=== PATIENT | female | born 1965 | race Caucasian/White ===

== ENCOUNTER → 2021-12-29 | Outpatient (CLI) | payer BC ==
--- NOTE | 2021-12-30 13:39 | MM ---
Reason for exam: screening (asymptomatic). Baseline mammogram. History: Patient is postmenopausal. Family history of breast cancer in maternal aunt at age 45 and breast cancer in paternal grandmother at age 45. Physical Findings: A clinical breast exam by your physician is recommended on an annual basis and results should be correlated with mammographic findings. MG 3D Screening Mammo W/Cad Bilateral CC and MLO view(s) were taken. There are scattered fibroglandular densities. There is no discrete abnormality. ASSESSMENT: Benign, BI-RAD 2 RECOMMENDATION: Routine screening mammogram of both breasts in 1 year.
== END | disposition home or self-care (01) ==
LOC: RADMAMWWP 10:08
PROVIDERS: ATTEND Obstetrics & Gynecology
DX: Z12.31 Encounter for screening mammogram for malignant neoplasm of breast (principal); Z78.0 Asymptomatic menopausal state; Z80.3 Family history of malignant neoplasm of breast
CPT/HCPCS: 77063; 77067

== ENCOUNTER 2024-01-13 12:43 | Observation (INO) | payer BC ==
--- NOTE | 2024-01-13 13:01 | ED ---
Chest Pain HPI - General Source: patient, RN notes reviewed <Jackelin Michel - Last Filed: 01/13/24 13:12> <Darek Llamas - Last Filed: 01/13/24 15:25> - General Stated Complaint: Chest Pain Time Seen by Provider: 01/13/24 12:55 - History of Present Illness Initial Comments: Quick Note-this is a 58-year-old female comes emergency department chief complaint of chest pain. Patient states she was at work when she began to feel heaviness in her chest that radiates into her back. Patient denies history of high blood pressure, hyperlipidemia, heart attack or stroke, or smoking history. (Jackelin Michel) This is a 58-year-old female with a past medical history significant for hypertension and prediabetes. Patient states she also has a very strong family history of heart disease with a brother and father both had heart attacks. Patient states she was at work at about an hour and a half ago and started having chest pressure went up to her right shoulder and he continues to be there now. Patient states she also woke up this morning with a headache. Patient does take high blood pressure medication and she took it this morning. Patient denies any recent fever chills or cough. Patient denies any abdominal pain patient has any nausea vomiting. Patient has any shortness of breath. Patient denies any diaphoretic episode. Patient Nuys any swelling to the legs or calf tenderness (Darek Llamas) - Related Data Home Medications Medication Instructions Recorded Confirmed lisinopriL [Zestril] 10 mg PO DAILY 01/13/24 01/13/24 Allergies Allergy/AdvReac Type Severity Reaction Status Date / Time Penicillins Allergy Rash/Hives Verified 01/13/24 15:02 Review of Systems ROS Other: All systems not noted in ROS Statement are negative. <Jackelin Michel - Last Filed: 01/13/24 13:12> ROS Other: All systems not noted in ROS Statement are negative. <Darek Llamas - Last Filed: 01/13/24 15:25> ROS Statement: Those systems with pertinent positive or pertinent negative responses have been documented in the HPI. General Exam <Jackelin Michel - Last Filed: 01/13/24 13:12> <Darek Llamas - Last Filed: 01/13/24 15:25> - General Exam Comments Initial Comments: Visual Physical Exam Vital signs reviewed General: Well-appearing, nontoxic, no acute distress. Head: Normocephalic, atraumatic Eyes: PERRLA, EOMI ENT: Airway patent Chest: Nonlabored breathing Skin: No visual rash, normal skin tone Neuro: Alert and oriented 3 Musculoskeletal: No gross abnormalities (ЕленаeleJackelin davis) GENERAL: Patient is well-developed and well-nourished. Patient is nontoxic and well- hydrated and is in mild distress. ENT: Neck is soft and supple. No significant lymphadenopathy is noted. Oropharynx is clear. Moist mucous membranes. Neck has full range of motion without eliciting any pain. EYES: The sclera were anicteric and conjunctiva were pink and moist. Extraocular movements were intact and pupils were equal round and reactive to light. Eyelids were unremarkable. PULMONARY: Unlabored respirations. Good breath sounds bilaterally. No audible rales rhonchi or wheezing was noted. CARDIOVASCULAR: There is a regular rate and rhythm without any murmurs gallops or rubs. ABDOMEN: Soft and nontender with normal bowel sounds. SKIN: Skin is clear with no lesions or rashes and otherwise unremarkable. NEUROLOGIC: Patient is alert and oriented x3. Cranial nerves II through XII are grossly intact. Motor and sensory are also intact. Normal speech, volume and content. Symmetrical smile. MUSCULOSKELETAL: Normal extremities with adequate strength and full range of motion. No lower extremity swelling or edema. No calf tenderness. LYMPHATICS: No significant lymphadenopathy is noted PSYCHIATRIC: Normal psychiatric evaluation. (Darek Llamas) Course Vital Signs 01/13/24 01/13/24 01/13/24 12:59 13:15 13:35 Temperature 97.0 F L Pulse Rate 64 68 62 Respiratory 20 18 18 Rate Blood Pressure 201/84 194/81 163/75 O2 Sat by Pulse 98 100 99 Oximetry 01/13/24 01/13/24 14:03 14:45 Temperature Pulse Rate 71 62 Respiratory 18 18 Rate Blood Pressure 163/73 166/81 O2 Sat by Pulse 98 100 Oximetry Chest Pain MDM <Stieleryan,Jackelin - Last Filed: 01/13/24 13:12> <Darek Llamas - Last Filed: 01/13/24 15:25> - MDM I completed the quick note portion of this chart signed Jackelin Michel PA-C (Jackelin Michel) EKG is interpreted by myself but EKG shows a sinus rhythm with occasional PAC at a rate of 71 bpm parables 134 QRS is 105 QT interval 397 QTc is 420. Patient's EKG shows no ST segment ovation or depression. Was pt. sent in by a medical professional or institution (, REJI, HYDROGENATION OPERATOR, urgent care, hospital, or shelter...) When possible be specific @ -No Did you speak to anyone other than the patient for history (EMS, parent, family, police, friend...)? What history was obtained from this source @ -No Did you review nursing and triage notes (agree or disagree)? Why? @ -I reviewed and agree with nursing and triage notes Were old charts reviewed (outside hosp., previous admission, EMS record, old EK G, old radiological studies, urgent care reports/EKG's, shelter records)? Report findings @ -No old charts were reviewed Differential Diagnosis (chest pain, altered mental status, abdominal pain women, abdominal pain men, vaginal bleeding, weakness, fever, dyspnea, syncope, headache, dizziness, GI bleed, back pain, seizure, CVA, palpatations, mental health, musculoskeletal)? @ -Differential Chest Pain: Stable Angina, Unstable Angina, STEMI, NSTEMI Aortic Dissection, Pneumothorax, Musculoskeletal, Esophageal Spasm GERD, Cholecystitis, Pancreatitis, Zoster, this is not meant to be an all-inclusive list. EKG interpreted by me (3pts min.). @ -As above X-rays interpreted by me (1pt min.). @ -Chest x-ray shows no acute abnormality CT interpreted by me (1pt min.). @ -None done U/S interpreted by me (1pt. min.). @ -None done What testing was considered but not performed or refused? (CT, X-rays, U/S, labs)? Why? @ -None What meds were considered but not given or refused? Why? @ -None Did you discuss the management of the patient with other professionals (professionals i.e. REJI Eugene, HYDROGENATION OPERATOR, lab, RT, psych nurse, school social worker, cutter head sharpener, teacher, community resource officer, case worker)? Give summary @ -I spoke with [facility] hospitalist and they agreed admit the patient to the patient wrote admitting orders Was smoking cessation discussed for >3mins.? @ -No Was critical care preformed (if so, how long)? @ -No Were there social determinants of health that impacted care today? How? (Homelessness, low income, unemployed, alcoholism, drug addiction, transportation, low edu. Level, literacy, decrease access to med. care, usp, rehab)? @ -No Was there de-escalation of care discussed even if they declined (Discuss DNR or withdrawal of care, Hospice)? DNR status @ -No What co-morbidities impacted this encounter? (DM, HTN, Smoking, COPD, CAD, Cancer, CVA, ARF, Chemo, Hep., AIDS, mental health diagnosis, sleep apnea, morbid obesity)? @ -None Was patient admitted / discharged? Hospital course, mention meds given and route, prescriptions, significant lab abnormalities, going to OR and other pertinent info. @ -Patient was given Nitropaste and aspirin and he stated the pain almost went away completely. Patient is feeling much better at this time lab work was normal x-rays were normal however because of the patient's family history and well as her personal risk factors I decided to keep the patient in consult to cardiology admitted the patient to [facility] Hospitalist Undiagnosed new problem with uncertain prognosis? @ -No Drug Therapy requiring intensive monitoring for toxicity (Heparin, Nitro, Insulin, Cardizem)? @ -No Were any procedures done? @ -No Diagnosis/symptom? @ -Chest Acute, or Chronic, or Acute on Chronic? @ -Acute Uncomplicated (without systemic symptoms) or Complicated (systemic symptoms)? @ -Complicated Side effects of treatment? @ -No Exacerbation, Progression, or Severe Exacerbation? @ -No Poses a threat to life or bodily function? How? (Chest pain, [place], [place], pneumonia, PE, COPD, DKA, ARF, appy, cholecystitis, CVA, Diverticulitis, Homicidal, Suicidal, threat to staff... and all critical care pts) @ -Yes this could lead to an WI and endorgan dysfunction (Darek Llamas) Disposition <Jackelin Michel - Last Filed: 01/13/24 13:12> Time of Disposition: 15:25 <Darek Llamas - Last Filed: 01/13/24 15:25> Clinical Impression: Chest pain Disposition: ADMITTED IP TO THIS HOSP Referrals: Darryl Gonsales DO [Primary Care Provider] - 1-2 days
[2024-01-13] MEDS: ASPIRIN 81 MG PO STA (13:26)
[2024-01-13] MEDS: NITROGLYCERIN OINT 1 INCH/GM PACKET TOPICAL STA (13:27)
[2024-01-13 13:50] LABS: ALT 32 U/L (4-34); African American GFR (CKD) >90 (>60 ml/min/1.73 sqM); Albumin 4.5 g/dL (3.5-5.0); Amylase 60 U/L (30-110); Anion Gap 10 mmol/L; Basophils # (A) 0.1 k/uL (0-0.2); Basophils % (A) 1 %; Blood Urea Nitrogen 19 mg/dL (7-17); Calcium 9.7 mg/dL (8.4-10.2); Carbon Dioxide 24 mmol/L (22-30); Chloride 106 mmol/L (98-107); Eosinophils # (A) 0.3 k/uL (0-0.7); Eosinophils % (A) 3 %; Glucose 99 mg/dL (74-99); HCT 43.2 % (34.0-46.0); HGB 14.6 gm/dL (11.4-16.0); Lipase 69 U/L (23-300); Lymphocytes # (A) 1.7 k/uL (1.0-4.8); Lymphocytes % (A) 17 %; MCH 29.9 pg (25.0-35.0); MCHC 33.8 g/dL (31.0-37.0); MCV 88.6 fL (80.0-100.0); Mean Platelet Volume 7.9; Monocytes # (A) 0.4 k/uL (0-1.0); Monocytes % (A) 4 %; Neutrophils # (A) 7.4 k/uL (1.3-7.7); Neutrophils % (A) 74 %; Non-African American GFR(CKD) >90 (>60 ml/min/1.73 sqM); Platelet Count 276 k/uL (150-450); RBC 4.88 m/uL (3.80-5.40); RDW 13.3 % (11.5-15.5); Sodium 140 mmol/L (137-145); Total Bilirubin 0.8 mg/dL (0.2-1.3); Total Protein 7.9 g/dL (6.3-8.2)
[2024-01-13 13:53] LABS: INR 0.9 (<1.2); Partial Thromboplastin Time 24.2 sec (22.0-30.0)
[2024-01-13 13:58] LABS: AST 39 U/L (14-36); Alkaline Phosphatase 85 U/L (38-126); Potassium 4.5 mmol/L (3.5-5.1)
[2024-01-13 13:59] LABS: Magnesium 1.8 mg/dL (1.6-2.3)
--- NOTE | 2024-01-13 14:24 | XR ---
EXAMINATION TYPE: XR chest 2V DATE OF EXAM: 01/13/2024 2:18 PM CLINICAL INDICATION:Female, 58 years old with history of chest pain; [facility] COMPARISON: None. TECHNIQUE: XR chest 2V Frontal and lateral views of the chest. FINDINGS: Lungs/Pleura: There is no evidence of pleural effusion, focal consolidation, or pneumothorax. Pulmonary vascularity: Unremarkable. Heart/mediastinum: Cardiomediastinal silhouette is unremarkable. Musculoskeletal: No acute osseous pathology. IMPRESSION: No acute cardiopulmonary disease/process.
[2024-01-13] MEDS ORDERED: NITROGLYCERIN SL TABS 0.4 MG TAB SUBLINGUAL PRN (15:27)
[2024-01-13] MEDS: NITROGLYCERIN OINT 1 INCH/GM PACKET TOPICAL SCH (17:09)
[2024-01-13] MEDS: HEPARIN SODIUM,PORCINE 5,000 UNIT/ML 1 ML VIAL SQ SCH (22:44)
[2024-01-13] MEDS: lisinopriL 10 MG TAB PO SCH (22:44)
--- NOTE | 2024-01-13 23:25 | P.HPIM ---
History of Present Illness H&P Date: 01/13/24 Chief Complaint: Chest pain Patient is a 58-year-old female with a past medical history of hypertension, prediabetes and renal stones presents to ER with complaints of chest pain. Patient states that she started having left retrosternal chest heaviness while she was at work. Associated mild shortness of breath and left shoulder and neck discomfort and felt like indigestion in the stomach. Patient states that her blood pressure is also high with SBP in 200s. Denies any episodes of vomiting. No diaphoresis. No dizziness or lightheadedness. Patient states that she woke up this morning with headache. She did take her blood pressure medication this morning. Denies any cough or sputum production. No fever no chills. Fairly recent illnesses. Denies any leg swelling. Came to ER for further evaluation. She was placed on Nitropaste which seemed to relieve her symptoms on palpation. Chest x-ray showed no acute cardiopulmonary process. EKG showed sinus rhythm with occasional supraventricular premature complexes. Laboratory data showed WBC 10.0 hemoglobin 14.6 and platelets 276 Sodium 140 potassium 4.5, chloride 106 BUN 19 and creatinine 0.69 and AST 39 ALT 32 and alk phos 85 Troponin x 3 negative. Lipase level 69. Patient states that she does have significant family history of coronary disease. Review of Systems Constitutional: Patient denies any fever or chills . No generalized weakness or weight loss. Abdomen: Patient denied nausea vomiting and diarrhea and abdominal pain. Cardiovascular: Patient denies any chest pain or short of breath no palpitations. Respiratory: patient denied any cough is from production. No shortness of breath Neurologic: Patient denied any numbness or tingling headache. Musculoskeletal: Patient denies any complaints of joint swelling or deformity. Skin: Negative Psychiatric: Negative Endocrine: No heat or cold intolerance. No recent weight gain. Genitourinary: No dysuria or hematuria. All other 14 point ROS negative except the above Past Medical History Past Medical History: Hypertension Additional Past Medical History / Comment(s): kidney stones History of Any Multi-Drug Resistant Organisms: None Reported Past Surgical History: Section Past Anesthesia/Blood Transfusion Reactions: No Reported Reaction Past Psychological History: No Psychological Hx Reported Smoking Status: Never smoker Past Alcohol Use History: Occasional Past Drug Use History: Marijuana Medications and Allergies Home Medications Medication Instructions Recorded Confirmed Type lisinopriL [Zestril] 10 mg PO DAILY 01/13/24 01/13/24 History Allergies Allergy/AdvReac Type Severity Reaction Status Date / Time Penicillins Allergy Rash/Hives Verified 01/13/24 15:02 Physical Exam Vitals: Vital Signs Temp Pulse Pulse Resp BP BP Pulse Ox 01/13/24 19:56 97.7 F 62 16 184/51 97 01/13/24 18:03 63 18 162/75 96 01/13/24 17:03 64 18 166/79 96 01/13/24 15:31 66 18 154/91 100 01/13/24 14:45 62 18 166/81 100 01/13/24 14:03 71 18 163/73 98 01/13/24 13:35 62 18 163/75 99 01/13/24 13:15 68 18 194/81 100 01/13/24 12:59 97.0 F L 64 20 201/84 98 Intake and Output 01/13/24 01/13/24 01/13/24 06:59 14:59 22:59 Other: Weight 129.274 kg 129.274 kg PHYSICAL EXAMINATION: Patient is lying in the bed comfortably, no acute distress, awake alert and oriented.. HEENT: Normocephalic. Neck is supple. Pupils reactive. Nostrils clear. Oral cavity is moist. Neck reveals no JVD, carotid bruits, or thyromegaly. CHEST EXAMINATION: Trachea is central. Symmetrical expansion. Lung carver clear to auscultation and percussion. CARDIAC: Normal S1, S2 with no gallops. No murmurs ABDOMEN: Soft. Bowel sounds normal. No organomegaly. No abdominal bruits. Extremities: reveal no edema. No clubbing or cyanosis Neurologically awake, alert, oriented x3 with well-coordinated movements. No focal deficits noted Skin: No rash or skin lesions. Psychiatric: Coperative. Nonsuicidal Musculoskeletal: No joint swelling or deformity. Normal range of motion. Results CBC & Chem 7: 01/13/24 13:20 01/13/24 13:20 Labs: Abnormal Lab Results - Last 24 Hours (Table) 01/13/24 Range/Units 13:20 BUN 19 H (7-17) mg/dL AST 39 H (14-36) U/L Thrombosis Risk Factor Assmnt - DVT/VTE Prophylaxis DVT/VTE Prophylaxis: Pharmacologic Prophylaxis ordered - Choose All That Apply Any of the Below Risk Factors Present?: Yes Each Factor Represents 1 point: Age 41-60 years, Obesity (BMI >25) Other Risk Factors: No Other congenital or acquired thrombophilia - If yes, enter type in comment: No Thrombosis Risk Factor Assessment Total Risk Factor Score: 2 Thrombosis Risk Factor Assessment Level: Low Risk Assessment and Plan Assessment: Cardiac chest pain. Rule out ACS. Uncontrolled hypertension Borderline diabetes History of renal stones Morbid obesity BMI 52.1 DVT prophylaxis with heparin subcu Plan: Patient will be continued on telemetry. Was given a dose of aspirin in the ER. Follow-up lipid panel. Serial EKG and troponin x 3. Patient will be started back on lisinopril 10 mg daily and titrate medications as needed. Cardiology consult for evaluation. Continue to follow closely.
[2024-01-14 08:23] VITALS: PULSE 63; RESP 16; TEMP 98
[2024-01-14] MEDS: ASPIRIN 325 MG TAB PO SCH (09:00)
--- NOTE | 2024-01-14 10:38 | P.CRDCN ---
History of Present Illness Consult date: 01/14/24 Consult reason: chest pain History of present illness: History of present illness: This is a 58-year-old female with no previous cardiac history, history of hypertension, prediabetes, family history of heart disease. We have been asked to evaluate the patient for chest pain. Patient presented to the emergency center with chest pressure that went to her right shoulder and headache. No nausea no vomiting. She does have some shortness of breath. No diaphoresis. No edema. EKG sinus rhythm with no acute changes. Chest x-ray: No acute process. CBC, INR, electrolytes are all within normal limits. BUN 19 creatinine 0.69. AST 39 otherwise liver function test are normal. Magnesium 1.8. Troponin negative x 3. Lipase 69. Home cardiac medications: Lisinopril 10 mg daily Review Of Systems: At the time of my exam: CONSTITUTIONAL: Denies fever or chills. HEENT: Denies blurred vision, vision changes, or eye pain. Denies hemoptysis CARDIOVASCULAR: Denies chest pain. Denies orthopnea. Denies PND. Denies palpitations RESPIRATORY: Denies shortness of breath. GASTROINTESTINAL: Denies abdominal pain. Denies nausea or vomiting. HEMATOLOGIC: Denies bleeding disorders. GENITOURINARY: Denies any blood in urine. SKIN: Denies pruitis. Denies rash. Physical examination: Gen: This is a [ ] VS: reviewed blood pressure 172/84, heart rate 63, pulse ox 97% on room air. HEENT: Head is atraumatic, normocephalic. Pupils equal, round. Sclerae is anicteric. NECK: Supple. No JVD. LUNGS: Clear to auscultation. No wheezes or rhonchi. No intercostal retractions. HEART: Regular rate and rhythm. No murmur. ABDOMEN: Soft No tenderness. EXTREMITIES: No pedal edema. No calf tenderness. NEUROLOGICAL: Patient is awake, alert and oriented x3. Assessment: Atypical chest pain with negative troponins, acute coronary syndrome ruled out Hypertension uncontrolled Prediabetes Family history of heart disease Plan: Resume lisinopril Discontinue Nitropaste Schedule patient for stress echocardiogram today Obtain 2-D echocardiogram and Doppler study to assess cardiac structure and function If blood pressure is controlled, testing is unremarkable, patient is cleared for discharge home later today and may follow-up with Dr. Marika Del Cid in the office in 1 to 2 weeks. Thank you kindly for this consultation. Nurse practitioner note has been reviewed, I agree with documented findings and plan of care. Patient was seen and examined. Past Medical History Past Medical History: Hypertension Additional Past Medical History / Comment(s): kidney stones History of Any Multi-Drug Resistant Organisms: None Reported Past Surgical History: Section Past Anesthesia/Blood Transfusion Reactions: No Reported Reaction Past Psychological History: No Psychological Hx Reported Smoking Status: Never smoker Past Alcohol Use History: Occasional Past Drug Use History: Marijuana Medications and Allergies Home Medications Medication Instructions Recorded Confirmed Type lisinopriL [Zestril] 10 mg PO DAILY 01/13/24 01/13/24 History Allergies Allergy/AdvReac Type Severity Reaction Status Date / Time Penicillins Allergy Rash/Hives Verified 01/13/24 15:02 Physical Exam Vitals: Vital Signs Temp Pulse Pulse Resp BP BP BP 01/14/24 07:15 98.0 F 63 16 172/84 01/14/24 02:23 98.2 F 73 15 133/76 01/13/24 19:56 97.7 F 62 16 184/51 01/13/24 18:03 63 18 162/75 01/13/24 17:03 64 18 166/79 01/13/24 15:31 66 18 154/91 01/13/24 14:45 62 18 166/81 01/13/24 14:03 71 18 163/73 01/13/24 13:35 62 18 163/75 01/13/24 13:15 68 18 194/81 01/13/24 12:59 97.0 F L 64 20 201/84 Pulse Ox 01/14/24 07:15 97 01/14/24 02:23 97 01/13/24 19:56 97 01/13/24 18:03 96 01/13/24 17:03 96 01/13/24 15:31 100 01/13/24 14:45 100 01/13/24 14:03 98 01/13/24 13:35 99 01/13/24 13:15 100 01/13/24 12:59 98 Intake and Output 01/13/24 01/14/24 01/14/24 22:59 06:59 14:59 Other: # Voids 1 2 Weight 129.274 kg Results 01/13/24 13:20 04/14/24 13:20 Cardiac Enzymes 01/13/24 01/13/24 01/13/24 Range/Units 13:20 13:20 16:06 AST 39 H (14-36) U/L Troponin I <0.012 <0.012 (0.000-0.034) ng/mL 01/13/24 Range/Units 19:37 AST (14-36) U/L Troponin I <0.012 (0.000-0.034) ng/mL Coagulation 01/13/24 Range/Units 13:20 PT 10.0 (10.0-12.5) sec APTT 24.2 (22.0-30.0) sec CBC 01/13/24 Range/Units 13:20 WBC 10.0 (3.8-10.6) k/uL RBC 4.88 (3.80-5.40) m/uL Hgb 14.6 (11.4-16.0) gm/dL Hct 43.2 (34.0-46.0) % Plt Count 276 (150-450) k/uL Comprehensive Metabolic Panel 01/13/24 Range/Units 13:20 Sodium 140 (137-145) mmol/L Potassium 4.5 (3.5-5.1) mmol/L Chloride 106 (98-107) mmol/L Carbon Dioxide 24 (22-30) mmol/L BUN 19 H (7-17) mg/dL Creatinine 0.69 (0.52-1.04) mg/dL Glucose 99 (74-99) mg/dL Calcium 9.7 (8.4-10.2) mg/dL AST 39 H (14-36) U/L ALT 32 (4-34) U/L Alkaline Phosphatase 85 (38-126) U/L Total Protein 7.9 (6.3-8.2) g/dL Albumin 4.5 (3.5-5.0) g/dL Current Medications Generic Name Dose Route Start Last Admin Trade Name Freq PRN Reason Stop Dose Admin Aspirin 325 mg 01/14/24 09:00 Aspirin 325 Mg Tab PO DAILY [facility] Heparin Sodium (Porcine) 5,000 unit 01/14/24 00:00 01/13/24 22:44 Heparin Sodium,Porcine 5,000 Unit/Ml 1 Ml Vial SQ Not Given Q8HR [facility] Lisinopril 10 mg 01/13/24 22:45 01/13/24 22:44 Lisinopril 10 Mg Tab PO Not Given DAILY EDVIN Nitroglycerin 0.4 mg 01/13/24 15:27 Nitroglycerin Sl Tabs 0.4 Mg Tab SUBLINGUAL Q5M PRN Chest Pain Nitroglycerin 1 inch 01/13/24 18:00 01/14/24 05:48 Nitroglycerin Oint 1 Inch/Gm Packet TOPICAL Not Given Q6HR [facility] Intake and Output 01/13/24 01/14/24 01/14/24 22:59 06:59 14:59 Other: # Voids 1 2 Weight 129.274 kg 01/13/24 13:20 01/13/24 13:20
--- NOTE | 2024-01-14 10:58 | CA ---
Stress Echo Report Kathy Sorto Age: 58 Gender: F : 1965 Exam Date: 01/14/2024 10:26 Exam Location: [place] Stress Ht (in): 62 Wt (lb): 285 Ordering Physician: Joseph Del Cid MD ([id number]) Referring Physician: Maria Eugenia CARABALLO Maintenance Engineer: Rashel Samuel Technologist Procedure CPT: Indication: CP ICD-9 Codes: Rhythm: Patient History: Cardiac Medications: Medications in past 24 hours: Contrast: N/A Stress Results Protocol: Tim Total dose(mL): NA Exercise Duration (min:sec): 4:[address] Depression (mm): Angina Score: Saxena Score: METS: 6.4 Resting HR: 90 Resting BP: 155 / 73 Peak HR: 150 Peak BP: 201 / 94 Max Predicted HR: 160 94 % Max Predicted HR Target HR: 136 Double Product: [id number] Stress Summary: BP Response: Reason for Termination: PROTOCOL COMPLETE Cardiac Symptoms: NO SYMPTOMS ECG Analysis Resting ECG: Normal sinus rhythm normal axis normal intervals Stress ECG: Patient exercised on Tim protocol for 4 minutes and 40 seconds achieving 6 mets 85% of predicted maximal heart rate without chest pain or diagnostic ST segment depression Arrhythmia: Echo Analysis Resting Echo: Normal left ventricular size wall motion systolic function Peak Echo Analysis: Echo is a technically suboptimal secondary to poor echo windows ; no exercise induced wall motion abnormalities are noted MEASUREMENTS (Male/Female) Normal Values CONCLUSIONS Poor exercise tolerance Negative stress test by EKG criteria Negative stress echo Dr. Joseph Del Cid MD (Electronically Signed) Final Date: 14 January 2024 10:57
[2024-01-14 11:16] VITALS: BP 140/78
[2024-01-14 11:36] LABS: BUN/Creat Ratio 21.14 Ratio (12.00-20.00); Blood Urea Nitrogen 14.8 mg/dL (9.0-27.0); Calcium 8.9 mg/dL (8.7-10.3); Chloride 106 mmol/L (96-109); Chol/HDL Ratio 3.53 Ratio; Glucose 104 mg/dL (70-110); LDL Cholesterol,Calculated 98.8 mg/dL (0.0-131.0); Potassium 4.4 mmol/L (3.5-5.5); Sodium 143 mmol/L (135-145)
--- NOTE | 2024-01-14 18:10 | CA ---
Transthoracic Echo Report Name: Kathy Sorto Age: 58 Gender: F : 1965 Exam Date: 01/14/2024 10:37 Exam Location: [facility] Ht (in): 62 Wt (lb): 285 Ordering Physician: Joseph Del Cid MD ([id number]) Attending/Referring Phys: Maria Eugenia CARABALLO Electrical Instrument Technician Maricruz Jolly RDCS Procedure CPT: Indications: CP Cardiac Hx: Technical Quality: Fair Contrast 1: Total Dose (mL): Contrast 2: Total Dose (mL): MEASUREMENTS (Male / Female) Normal Values 2D ECHO LV Diastolic Diameter PLAX 5.0 cm 4.2 - 5.9 / 3.9 - 5.3 cm LV Systolic Diameter PLAX 2.8 cm IVS Diastolic Thickness 1.2 cm 0.6 - 1.0 / 0.6 - 0.9 cm LVPW Diastolic Thickness 1.0 cm 0.6 - 1.0 / 0.6 - 0.9 cm LV Relative Wall Thickness 0.4 RV Internal Dim ED PLAX 4.3 cm LA Volume 54.9 cm??? 18 - 58 / 22 - 52 cm??? LA Volume Index 22.3 cm???/m??? 16 - 28 cm???/m??? M-MODE Aortic Root Diameter MM 3.1 cm LA Systolic Diameter MM 4.9 cm LA Ao Ratio MM 1.6 DOPPLER AV Peak Velocity 172.9 cm/s AV Peak Gradient 12.0 mmHg AV Mean Velocity 112.5 cm/s AV Mean Gradient 5.7 mmHg AV Velocity Time Integral 32.1 cm LVOT Peak Velocity 127.1 cm/s LVOT Peak Gradient 6.5 mmHg LVOT Velocity Time Integral 31.3 cm MV Peak Velocity 128.1 cm/s MV Peak Gradient 6.6 mmHg MV Mean Velocity 89.6 cm/s MV Mean Gradient 3.6 mmHg MV Velocity Time Integral 33.8 cm MV Area PHT 3.8 cm??? Mitral E Point Velocity 136.3 cm/s Mitral A Point Velocity 112.3 cm/s Mitral E to A Ratio 1.2 MV Deceleration Time 198.4 ms MV E' Velocity 8.7 cm/s Mitral E to MV E' Ratio 15.7 TR Peak Velocity 325.3 cm/s TR Peak Gradient 42.3 mmHg Right Ventricular Systolic Press 54.1 mmHg FINDINGS Left Ventricle Mildly increased left ventricular wall thickness. Left ventricular cavity size normal. Normal left ventricular systolic function with no obvious regional wall motion abnormalities. Left ventricular ejection fraction is estimated at 55-60 %. Grade 1 diastolic dysfunction. Right Ventricle Moderate right ventricular dilatation. Moderate pulmonary hypertension. Right Atrium Normal right atrial size. Left Atrium Mildly increased left atrial volume. Mildly increased left atrial area. Mitral Valve Structurally normal mitral valve. Mild mitral annular calcification. Mild mitral regurgitation. Aortic Valve Trileaflet aortic valve. Thickened aortic valve without stenosis. No aortic regurgitation. Tricuspid Valve Structurally normal tricuspid valve. Moderate tricuspid regurgitation. Pulmonic Valve Structurally normal pulmonic valve. Trace pulmonic regurgitation. Pericardium No pericardial effusion. Aorta Normal size aortic root and proximal ascending aorta. CONCLUSIONS Normal LV function Moderate pulmonary hypertension Mild mitral regurgitation Previewed by: Dr. Joseph Del Cid MD (Electronically Signed) Final Date: 14 January 2024 18:09
--- NOTE | 2024-01-18 04:43 | P.DS ---
Providers Date of admission: 01/13/24 15:27 Expected date of discharge: 01/14/24 Attending physician: Alok Patel Consults: 01/13/24 15:27 Consult Physician Urgent Consulting Provider: [facility] Consult Reason/Comments: Chest pain Do you want consulting provider notified?: Yes Primary care physician: [facility] Hospital Course: Final diagnosis Cardiac chest pain. Ruled out ACS. Stress test was negative Uncontrolled hypertension Borderline diabetes History of renal stones Morbid obesity BMI 52.1 DVT prophylaxis GI prophylaxis Full code Discharge disposition Patient is being discharged in a stable condition with guarded prognosis to home. Patient will follow-up with Dr. Gonsales in the outpatient setting upon discharge. Patient is to continue with current medications and outpatient follow-up with cardiology as scheduled. Total time taken is greater than 35 minutes. Hospital course This is a 58-year-old female who was recently admitted with chest pain and uncontrolled blood pressure being closely monitored. Patient evaluated by cardiology underwent stress testing which was negative for ischemia recommending outpatient follow-up with Dr. Del Cid in the outpatient setting. Patient has been cleared by cardiology. Please refer to cardiology notes for further HPI. Currently no reports of chest pain, shortness of breath, or palpitations. Patient is afebrile. No reports of nausea or vomiting and patient is tolerating diet. Patient will be discharged home today. Guarded prognosis Physical exam: Gen: This is a 58-year-old female who is awake, alert and oriented x 3, well- developed, well-nourished, morbidly obese HEENT: Head is atraumatic, normocephalic. Pupils equal, round. Sclerae is anicteric. NECK: Supple. No JVD. No lymphadenopathy. No thyromegaly. LUNGS: Diminished breath sounds bilaterally otherwise clear to auscultation. No wheezes or rhonchi. No intercostal retractions. HEART: S1, S2 are muffled ABDOMEN: Soft. Obese. Bowel sounds are present. No masses. No tenderness. EXTREMITIES: No pedal edema. No calf tenderness. NEUROLOGICAL: Patient is awake, alert and oriented x3. Cranial nerves 2 through 12 are grossly intact. Please refer to medication reconciliation sheet for a list of medications. The impression and plan of care has been dictated by Maricel Graham, Nurse Practitioner as directed. Dr. Nam MD I have performed a history and examination and MDM of this patient, discussed the same with the dictator, and agree with the dictator's assessment and plan as written ,documented as a scribe. Based on total visit time, I have performed more than 50% of the visit. Patient Condition at Discharge: Fair Plan - Discharge Summary Discharge Rx Participant: No New Discharge Prescriptions: New Aspirin 81 mg PO DAILY #30 tab Nitroglycerin Sl Tabs [Nitrostat] 0.4 mg SUBLINGUAL Q5M PRN #20 tab PRN Reason: Chest Pain Continue lisinopriL [Zestril] 10 mg PO DAILY Discharge Medication List lisinopriL [Zestril] 10 mg PO DAILY 01/13/24 [History] Aspirin 81 mg PO DAILY #30 tab 01/14/24 [Rx] Nitroglycerin Sl Tabs [Nitrostat] 0.4 mg SUBLINGUAL Q5M PRN #20 tab 01/14/24 [Rx] Follow up Appointment(s)/Referral(s): Darryl Gonsales DO [Primary Care Provider] - 1-2 days Joseph Del Cid MD [STAFF PHYSICIAN] - 2 Weeks Activity/Diet/Wound Care/Special Instructions: Activity limited until follow-up Follow-up with primary care provider on discharge Follow-up with cardiology outpatient in 1 to 2 weeks Continue taking medications as prescribed Discharge Disposition: HOME SELF-CARE
== END 2024-01-14 13:38 | disposition home or self-care (01) ==
LOC: EC 12:43 → 6NMEDSUR 15:27
PROVIDERS: ADMIT Internal Medicine; ATTEND Internal Medicine
DX: R07.89 Other chest pain (principal); I10 Essential (primary) hypertension; R73.03 Prediabetes; M54.2 Cervicalgia; M25.512 Pain in left shoulder; M25.511 Pain in right shoulder; E66.01 Morbid (severe) obesity due to excess calories; Z68.43 Body mass index [BMI] 50.0-59.9, adult; Z79.899 Other long term (current) drug therapy; Z88.0 Allergy status to penicillin; Z87.442 Personal history of urinary calculi; Z82.49 Family history of ischemic heart disease and other diseases of the circulatory system
CPT/HCPCS: 96372; 99285; 36415; 93005; 93306; 93351; 80061; 80053; 80048; 82150; 83690; 83735; 84484; 85025; 85610; 85730; 71046; G0378 ×2; J1644

== ENCOUNTER → 2024-02-13 | Outpatient (CLI) | payer BC ==
--- NOTE | 2024-02-14 10:41 | MM ---
Reason for Exam: Screening (asymptomatic). Last mammogram was performed 2 year(s) and 2 month(s) ago. Patient History: Menarche at age 9. First Full-Term at age 28. Late child-bearing (after 28). Postmenopausal. Hormonal Contraceptives, from age 23 until age 26. Paternal grandmother had breast cancer, age 45. Maternal aunt had breast cancer, age 45. Risk Values: Joan 5 year model risk: 2.2%. NCI Lifetime model risk: 10.9%. Prior Study Comparison: 12/29/2021 Bilateral Screening Mammogram, [facility]. Tissue Density: The breasts are almost entirely fatty. Findings: Analyzed By CAD. Right breast: There is no suspicious group of microcalcifications or new suspicious mass. Left breast: There is no suspicious group of microcalcifications or new suspicious mass. Overall Assessment: Negative, BI-RAD 1 Management: Screening Mammogram of both breasts in [address] [facility] will attempt to contact patient to return for supplemental views and ultrasound if indicated. Patient should continue monthly self-breast exams. A clinical breast exam by your physician is recommended on an annual basis. This exam should not preclude additional follow-up of suspicious palpable abnormalities. Note on Joan scores and lifetime risk: 1. A Joan score greater than 3% is considered moderate risk. If this is the case, consider specialist referral to assess eligibility for a risk reducing agent. 2. If overall lifetime risk for the development of breast cancer is 20% or higher, the patient may qualify for future screening with alternating mammogram and breast MRI. Electronically signed and approved by: Felix Barragan DO
== END | disposition home or self-care (01) ==
LOC: RADMAMWWP 11:01
PROVIDERS: ATTEND Family Medicine
DX: Z12.31 Encounter for screening mammogram for malignant neoplasm of breast (principal); Z78.0 Asymptomatic menopausal state; Z80.3 Family history of malignant neoplasm of breast
CPT/HCPCS: 77063; 77067

== ENCOUNTER → 2024-06-19 | Outpatient (CLI) | payer BC ==
[2024-06-19 14:37] VITALS: BP 175/75; PULSE 72; RESP 16; TEMP 97.5
--- NOTE | 2024-06-19 15:03 | P.SLEEP ---
History of Present Illness DATE: 06/19/2024 CONSULTATION/NEW PATIENT EVALUATION HISTORY OF PRESENT ILLNESS/SLEEP-WAKE EVALUATION: 59-year-old lady had been e valuated in the sleep center for possible obstructive sleep apnea hypopnea syndrome. SLEEP SCHEDULE: Usually sleep schedule from 9 PM to 4:45 AM on weekdays and from 1030 to 6 AM on weekend. FALLING ASLEEP: Patient does have difficulties with falling asleep, although no TV in bedroom. DURING SLEEP: Patient usually sleeps on the side position with loud snoring and awakenings from sleep up to 4 times with 1 episode of nocturia, episodes of palpitation, gasping for air, restless leg symptoms, grinding teeth. No history of hypnogogical hallucinations, sleep paralysis, or cataplexy. DURING THE DAY/WAKE STATE: In the morning patient wake up tired. [place] sleepiness scale is increased to 11. Patient takes 1 nap. PAST MEDICAL HISTORY: Hypertension. PAST SURGICAL HISTORY: . MEDICATIONS: Please see below. SOCIAL HISTORY: See below. FAMILY HISTORY: Hypertension, heart problems, sleep apnea. REVIEW OF SYSTEMS: Snoring, multiple awakenings from sleep, sleepiness during the day. No fevers. No double vision. No recent chest pain. No shortness of breath. No abdominal pain. No bleeding episodes. No blood in urine. No seizure episodes. PHYSICAL EXAMINATION: GENERAL: A pleasant patient without any distress. VITAL SIGNS: Please see below, weight 292 pounds, BMI 53.4. HEENT: PERRLA, EOMI. Evaluation of oropharynx showed tongue protrudes midline, low position of soft palate Mallampati 4. NECK: Supple. No JVD. Thyroid is not palpable. 17 inches in circumference. LUNGS: Clear to percussion and to auscultation. Good air exchange. No wheezing or rhonchi. HEART: S1, S2 regular. No murmurs, gallops or rubs. ABDOMEN: Soft and nontender. Bowel sounds are present. No organomegaly appreciated. Obese. EXTREMITIES: No clubbing or cyanosis. RECEPTIONIST/TELEPHONE OPERATOR: Awake, alert, and oriented x3. Cranial nerves 2 to 7 intact. There is no fasciculation or atrophy noted. No focal deficits observed. ASSESSMENT: 1. Loud snoring, multiple awakenings from sleep, extremely low position of soft palate Mallampati 4, wide neck 17 inches in circumference, sleepiness with [place] Sleepiness Scale 11. Obstructive sleep apnea hypopnea syndrome. 2. Obesity, BMI 53.4. 3. Hypertension. 4. Episodes of palpitations. PLAN: 1. Polysomnography for evaluation of patient's breathing during sleep. 2. Following plan after reading sleep study. 3. Preferable position during sleep on the side. 4. No driving if patient feels any sleepiness. Patient is aware of civil and criminal liability for unsafe driving. 5. Sleep hygiene with regular sleep time for at least 7.5-8 ho urs. 6. Watching and losing weight. Thank you very much for referring this patient for consultation. Sincerely, Ken Randhawa MD, PhD, FAASM. Diplomat of [place] Board of Sleep Medicine, Sleep Medicine Board by [place] Board of Medical Specialities [place] [employer] of [employer] Medicine [employer] Teacher of [facility] Past Medical History Past Medical History: Hypertension Additional Past Medical History / Comment(s): kidney stones History of Any Multi-Drug Resistant Organisms: None Reported Past Surgical History: Section Past Anesthesia/Blood Transfusion Reactions: No Reported Reaction Past Psychological History: No Psychological Hx Reported Smoking Status: Never smoker Past Alcohol Use History: Occasional Past Drug Use History: Marijuana - Past Family History Father Family Medical History: CVA/TIA, Hyperlipidemia, Sleep Apnea/CPAP/BIPAP Additional Family Medical History / Comment(s): snoring Mother Family Medical History: Hypertension Additional Family Medical History / Comment(s): emphysema Medications and Allergies Home Medications Medication Instructions Recorded Confirmed Type lisinopriL [Zestril] 20 mg PO DAILY 01/13/24 01/13/24 History Aspirin 81 mg PO DAILY #30 tab 01/14/24 Rx Nitroglycerin Sl Tabs [Nitrostat] 0.4 mg SUBLINGUAL Q5M PRN #20 tab 01/14/24 Rx Allergies Allergy/AdvReac Type Severity Reaction Status Date / Time Penicillins Allergy Rash/Hives Verified 01/13/24 15:02 Physical Exam Vitals: Vital Signs Temp Pulse Resp BP Pulse Ox 06/19/24 14:36 97.5 F L 72 16 175/75 98 Intake and Output 06/18/24 06/19/24 06/19/24 22:59 06:59 14:59 Other: Weight 132.449 kg Sleep Note - Sleep Data ESS Total: 11 - Sleep Note Sleep Note: Temperature: 97.5 F Pulse Rate: 72 Respiratory Rate: 16 Blood Pressure: 175/75 SpO2: 98 Height: 5 ft 2 in Weight: 132.449 kg BMI: Neck Circumference: 17
== END ==
LOC: 3 N SLEEP 14:11
PROVIDERS: ATTEND Internal Medicine
CPT/HCPCS: 99211